=== PATIENT | male | born 1975 | race Two or more races ===

== ENCOUNTER 2024-12-10 11:43 | Emergency (ER) | payer BC ==
[~2024-12-10] VITALS: Ht 188 cm; Wt 99.8 kg
[2024-12-10 12:02] VITALS: BP 166/97; TEMP 98.9; O2SAT 99
[2024-12-10] MEDS ORDERED: CHLO25TA13 PO (12:20)
== END 2024-12-10 12:48 | disposition home or self-care (01) ==
LOC: ER 11:50
DX: R06.6 Hiccough (principal)